=== PATIENT | female | born 1940 | race Caucasian/White ===

== ENCOUNTER 2016-06-10 09:05 | Outpatient (CLI) | payer MEDICARE, OTHER ==
--- NOTE | 2016-06-10 20:13 | CT ---
CT ABDOMEN AND PELVIS WITHOUT CONTRAST: Date: 06-10-16 Comparison: None. This study was done without IV contrast. In looking at the patient's renal studies, they were borde rline and have been slowly worsening over the last several weeks. Therefore, I felt it was probably not in her best interest to use the dye. Axial slices were acquired and then coronal and sagittal reconstructions were done. FINDINGS: There is a large right pleural effusion and a small left pleural effusion. The right pleural effusi on is causing compressive atelectasis of at least the right lower lobe, if not the right middle lobe slightly. Within the limitations of a noncontrast study, the liver did not appear to contain any space occupyi ng lesions. Its overall size was appropriate. No dilated intrahepatic ducts were seen. The spleen and pancreas were unremarkable. The adrenal glands and kidneys showed no acute findings. The aort a is ectatic but there is no focal aneurysm. The bowel is nondistended. There were no thickened loops to suggest inflammatory change. No free a ir was seen. However, there is a little bit of fluid in the paracolic gutters and the abdominal wal l in general has a reticulated appearance suggestive of fluid excess. CT of the pelvis showed no adnexal masses. There is fluid in the cul-de-sac. It is notable that th ere is a very prominent anterior compression fracture of the L2 vertebral body that has been reduced in height by probably 50-60%. There is slight retropulsion of fragments towards the spinal canal. The AP diameter of the canal at the L1-2 level was measured at about 1.1 to 1.2 cm. A degenerated disc is seen at L5-S1. An old healed fracture is seen of the right inferior pubic ramus. IMPRESSION: 1. Bilateral pleural effusions, right greater than left. 2. Evidence of fluid overload elsewhere, including small amounts of fluid in the paracolic gutters in the cul-de-sac, but there is reticulation of the abdominal wall soft tissues. I do not know if t he etiology of the fluid issues is on the basis of hepatic disease or cardiac disease. 3. Prominent anterior compression fracture of L2 with slight retropulsion of fragments. Findings discussed with Dr. Chairez at 1816 on 06-10-16. POS: HOME
== END 2016-06-10 09:06 | disposition home or self-care (01) ==
LOC: BURCT 09:05
PROVIDERS: ATTEND Family Medicine
DX: R10.31 Right lower quadrant pain (principal); J90 Pleural effusion, not elsewhere classified
CPT/HCPCS: 74176

== ENCOUNTER 2016-11-11 11:15 | Outpatient (CLI) | payer MEDICARE, OTHER ==
--- NOTE | 2016-11-12 07:43 | RAD ---
CHEST TWO VIEWS 11/11/16 No prior films were available for comparison. The heart is mildly enlarged but there are no congesti ve changes. COPD is present with flattening of the diaphragm. There is blunting of the right costoph renic angle which seems chronic. A 06/10/16 CT of abdomen included the lower chest and suggested flui d was there at that time. I do not know the etiology. The lungs are otherwise clear. A cardiac pacer is in place. The trachea is midline. The bones are os teoporotic. Vertebral compression fractures are present near the thoracolumbar junction but are diff icult to define well on this study. The old CT showed a prior L2 fracture. 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 Mild cardiomegaly without congestive susan nge. POS: HOME
== END 2016-11-11 11:16 | disposition home or self-care (01) ==
LOC: BURRAD 11:15
PROVIDERS: ATTEND Family Medicine
DX: R06.02 Shortness of breath (principal); J44.9 Chronic obstructive pulmonary disease, unspecified; I51.7 Cardiomegaly
CPT/HCPCS: 71020